=== PATIENT | male | born 1975 ===

== ENCOUNTER 2018-03-12 09:58 | Outpatient (CLI) | payer OTHER ==
[~2018-03-12 09:58] MED LIST: ALLEGRA ALLERG180 MG PO; TESSALON PERLE100 MG PO
== END 2018-03-12 10:11 | disposition home or self-care (01) ==
LOC: LAB 09:58
DX: D68.8 Other specified coagulation defects (principal); R74.0 Nonspecific elevation of levels of transaminase and lactic acid dehydrogenase [LDH]

== ENCOUNTER 2023-12-19 06:57 | Day surgery (SDC) | payer OTHER ==
[2023-12-19] MEDS ORDERED: DIPHENHYDRAMINE HCL 50 MG/ML VIAL 1ML IV ONE (12:15)
[2023-12-19] MEDS ORDERED: fentaNYL CITRATE 50 MCG/ML AMPUL IV PUSH ONE (12:15)
[2023-12-19] MEDS ORDERED: MIDAZOLAM HCL 2 MG/2 ML VIAL IV ONE (12:15)
[2023-12-19] MEDS ORDERED: ONDANSETRON HCL 2 MG/ML VIAL IV ONE (12:15)
== END 2023-12-19 13:30 | disposition home or self-care (01) ==
LOC: AMB-ENDOS 06:57
PROVIDERS: ATTEND Colon & Rectal Surgery
DX: D12.5 Benign neoplasm of sigmoid colon (principal); K63.5 Polyp of colon; K64.8 Other hemorrhoids

== ENCOUNTER 2024-02-11 06:00 | Day surgery (SDC) | payer OTHER ==
[2024-02-11] MEDS ORDERED: MIDAZOLAM HCL 2 MG/2 ML VIAL IV ONE (11:30)
[2024-02-11] MEDS ORDERED: ONDANSETRON HCL 2 MG/ML VIAL IV ONE (11:30)
[2024-02-11] MEDS ORDERED: DIPHENHYDRAMINE HCL 50 MG/ML VIAL 1ML IV ONE (11:30)
[2024-02-11] MEDS ORDERED: fentaNYL CITRATE 50 MCG/ML AMPUL IV PUSH ONE (11:30)
== END 2024-02-11 13:20 | disposition home or self-care (01) ==
LOC: AMB-ENDOS 06:00
PROVIDERS: ATTEND Colon & Rectal Surgery
DX: D12.5 Benign neoplasm of sigmoid colon (principal); K63.5 Polyp of colon

== ENCOUNTER 2024-11-17 08:30 | Day surgery (SDC) | payer OTHER ==
[2024-11-17] MEDS ORDERED: ONDANSETRON HCL 2 MG/ML VIAL IV ONE (10:15)
[2024-11-17] MEDS ORDERED: MIDAZOLAM HCL 2 MG/2 ML VIAL IV ONE (10:15)
[2024-11-17] MEDS ORDERED: DIPHENHYDRAMINE HCL 50 MG/ML VIAL 1ML IV ONE (10:15)
[2024-11-17] MEDS ORDERED: fentaNYL CITRATE 50 MCG/ML AMPUL IV PUSH ONE (10:15)
== END 2024-11-17 11:15 | disposition home or self-care (01) ==
LOC: CIR.AMB 08:30
PROVIDERS: ATTEND Colon & Rectal Surgery
DX: D12.3 Benign neoplasm of transverse colon (principal); D12.4 Benign neoplasm of descending colon; D12.5 Benign neoplasm of sigmoid colon; K62.1 Rectal polyp; K63.5 Polyp of colon; K62.5 Hemorrhage of anus and rectum